=== PATIENT | male | born 1995 | race Two or more races ===

== ENCOUNTER 2017-05-22 20:03 | Emergency (ER) | payer OTHER ==
[2017-05-22] MEDS ORDERED: Lidocaine 1% with EPINEPHrine 1:100,000 20 ML MDV INJECT ONE (20:46)
[2017-05-22] MEDS ORDERED: Acetaminophen/HYDROcodone 325-5 MG Tab PO ONE (20:46)
[2017-05-22] MEDS ORDERED: Sulfamethoxazole/Trimethoprim 800-160 MG Tab PO ONE (20:47)
--- NOTE | 2017-05-22 20:50 | EDM.PDOC ---
ED HPI GENERAL MEDICAL PROBLEM - General Chief Complaint: Skin Complaint Stated Complaint: skin complaint Time Seen by Provider: 05/22/17 20:38 - History of Present Illness INITIAL COMMENTS - FREE TEXT/NARRATIVE: HISTORY AND PHYSICAL: History of present illness: The patient is a 22-year-old male who presents with a three-day history of a small pimple on his left butt cheek that he manipulated and seem to be getting worse. There is been no drainage but there has been increased redness and pain to the area. He has no other systemic complaints of fever chills nausea vomiting or abdominal pain and no bowel or bladder disturbances. Review of systems: As per history of present illness and below otherwise all systems reviewed and negative. Past medical history: As per history of present illness and as reviewed below otherwise noncontributory. Surgical history: As per history of present illness and as reviewed below otherwise noncontributory. Social history: No reported history of drug or alcohol abuse. Family history: As per history of present illness and as reviewed below otherwise noncontributory. Physical exam: Gen.: Well-developed well-nourished male who is nontoxic and vital signs have been reviewed by me HEENT: Atraumatic, normocephalic, , negative for conjunctival pallor or scleral icterus, mucous membranes moist, throat clear, neck supple, nontender, trachea midline. Lungs: Clear to auscultation, breath sounds equal bilaterally, chest nontender. Heart: S1S2, regular, and rhythm no overt murmurs Abdomen: Soft, nondistended, nontender. NABS Pelvis: Stable nontender. Genitourinary: Deferred. Rectal: Deferred. Extremities: Atraumatic, negative for cords or calf pain. Neurovascular unremarkable. Neuro: Awake, alert, oriented. Cranial nerves II through XII unremarkable. Cerebellum unremarkable. Motor and sensory unremarkable throughout. Exam nonfocal. Skin: At the left butt cheek at midpoint there is a 4 cm x 4 cm area of firm induration with a central punctum and some fluctuance in the center but no overt drainage. There is diffuse tenderness here and there is no extension medially towards the buttocks groove. Diagnostics: [] Therapeutics: Bactrim Ponder wound care Procedure note: After the procedure was explained to the patient 1% lidocaine with epinephrine was infused in the area was prepped and draped. Using an 11 blade scalpel a small stab opening was made and only a small amount of pus was expressed. The cavity was explored but it was too small to place a pack. The procedure was performed by Oma Barry NP There were no complications and the patient tolerated the procedure well. A dressing was applied by nursing. Patient was advised that they might be more drainage from the area. Impression: Abscess/cellulitis right buttocks Definitive disposition and diagnosis as appropriate pending reevaluation and review of above. right buttock Pain Score (Numeric/FACES): 8 - Related Data Allergies Allergy/AdvReac Type Severity Reaction Status Date / Time No Known Allergies Allergy Verified 05/22/17 20:50 Home Meds: Home Meds . [No Known Home Meds] 05/22/17 [History] ED ROS GENERAL - Review of Systems Review Of Systems: ROS reveals no pertinent complaints other than HPI. ED EXAM, SKIN/RASH Exam: See Below (See dictation) Course - Vital Signs Last Recorded V/S: Last Vital Signs Temp 36.8 C 05/22/17 20:48 Pulse 88 05/22/17 20:48 Resp 17 05/22/17 20:48 BP 124/52 L 05/22/17 20:48 Pulse Ox 100 05/22/17 20:48 - Orders/Labs/Meds Meds: Medications Discontinued Medications Generic Name Dose Route Start Last Admin Trade Name Angle PRN Reason Stop Dose Admin Hydrocodone Bitart/Acetaminophen 1 tab 05/22/17 20:46 05/22/17 21:04 Ponder 325-5 Mg PO 05/22/17 20:47 1 tab ONETIME ONE Administration Lidocaine/Epinephrine 20 ml 05/22/17 20:46 05/22/17 21:04 Xylocaine 1% With Epinephrine 1:100,000 INJECT 05/22/17 20:47 20 ml ONETIME ONE Administration Trimethoprim/Sulfamethoxazole 1 tab 05/22/17 20:47 05/22/17 21:05 Septra Ds PO 05/22/17 20:48 1 tab ONETIME ONE Administration Departure - Departure Time of Disposition: 21:07 Disposition: Home, Self-Care 01 Condition: Good Clinical Impression: Abscess Cellulitis Qualifiers: Site of cellulitis: buttock Qualified Code(s): L03.317 - Cellulitis of buttock - Discharge Information Referrals: PCP,None [Primary Care Provider] - Forms: ED Department Discharge Additional Instructions: The following information is given to patients seen in the emergency department who are being discharged to home. This information is to outline your options for follow-up care. We provide all patients seen in our emergency department with a follow-up referral. The need for follow-up, as well as the timing and circumstances, are variable depending upon the specifics of your emergency department visit. If you don't have a primary care physician on staff, we will provide you with a referral. We always advise you to contact your personal physician following an emergency department visit to inform them of the circumstance of the visit and for follow-up with them and/or the need for any referrals to a consulting specialist. The emergency department will also refer you to a specialist when appropriate. This referral assures that you have the opportunity for followup care with a specialist. All of these measure are taken in an effort to provide you with optimal care, which includes your followup. Under all circumstances we always encourage you to contact your private physician who remains a resource for coordinating your care. When calling for followup care, please make the office aware that this follow-up is from your recent emergency room visit. If for any reason you are refused follow-up, please contact the [facility] emergency department at and ask to speak to the emergency department charge nurse. [facility] Primary care- Internal Medicine and Family [address] [address] Please expect some drainage from the area and change dressing as needed. Please take antibiotics as directed and please schedule a follow-up appointment in our clinic for further care and evaluation. Return to ER as needed and as discussed. It may take a full 7-10 days for this to completely improve.
== END 2017-05-22 21:37 | disposition home or self-care (01) ==
LOC: MW.ED 20:03
DX: L03.317 Cellulitis of buttock (principal); L02.31 Cutaneous abscess of buttock
CPT/HCPCS: 99283; A9270